=== PATIENT | male | born 1965 | race Caucasian/White ===

== ENCOUNTER 2023-04-20 18:16 | Emergency (ER) | payer BC, OTHER ==
[2023-04-20 19:03] LABS: BASOPHILS ABSOLUTE AUTO 0.01 10^3/uL (0.00-0.10); BASOPHILS PERCENT AUTO 0.1 % (0.0-1.0); HEMATOCRIT 41.2 % (40.0-52.0); IMMATURE GRAN ABSOLUTE AUTO 0.02 10^3/uL (0.00-0.50); IMMATURE GRAN PERCENT AUTO 0.2 % (0.0-5.0); LYMPHOCYTES ABSOLUTE AUTO 0.67 10^3/uL (1.00-4.00); LYMPHOCYTES PERCENT AUTO 5.6 % (20.0-40.0); MEAN CORPUSCULAR HEMOGLOBIN 30.6 pg (27.0-31.0); MEAN CORPUSCULAR VOLUME 90.2 fL (82.0-92.0); MEAN PLATELET VOLUME 10.5 fL (7.4-10.4); MONOCYTES ABSOLUTE AUTO 0.75 10^3/uL (0.10-0.80); MONOCYTES PERCENT AUTO 6.3 % (2.0-8.0); NEUTROPHILS ABSOLUTE AUTO 10.48 10^3/uL (2.50-7.00); NEUTROPHILS PERCENT AUTO 87.8 % (50.0-70.0); PLATELET COUNT,PLT 128 10^3/uL (150-400); RED BLOOD CELL COUNT 4.57 10^6/uL (4.50-6.00); RED CELL DISTRIBUTION WIDTH 12.7 % (11.5-14.5); WHITE BLOOD CELL COUNT,WBC 11.93 10^3/uL (5.00-10.00)
[2023-04-20 19:31] LABS: ANION GAP 15.4 mmol/L (5-15); CALCIUM 8.6 mg/dL (8.7-10.3); CARBON DIOXIDE,CO2 26.3 mmol/L (21.0-32.0); CREATININE 0.95 mg/dL (0.51-1.17); EST CRCL DRUG DOSING (CG) 87.51 mL/min; POTASSIUM,K 3.7 mmol/L (3.5-5.1)
[2023-04-20 19:32] LABS: C-REACTIVE PROTEIN 16.9 mg/dL (0.0-0.9)
[2023-04-20] MEDS: cefTRIAXone 2 GM Vial IVPUSH ONE (19:38)
[2023-04-20] MEDS: Sodium Chloride 0.9% 100 ML IV SCH (21:09)
[2023-04-20] MEDS: Iopamidol 755 Mg/ML 100 ML Bottle IV ONE (21:10)
[2023-04-20 21:15] VITALS: BP 131/77; PULSE 101
== END 2023-04-20 21:45 | disposition home or self-care (01) ==
LOC: KA.ED 18:16
DX: L03.115 Cellulitis of right lower limb (principal)
CPT/HCPCS: 36415; 71275; 80048; 83605; 85025; 85379; 86140; 87040; 96374; 99283-25; 99284; J0696; J3490; Q9967

== ENCOUNTER 2023-07-21 15:35 | Emergency (ER) | payer BC ==
[2023-07-21 15:50] LABS: BASOPHILS ABSOLUTE AUTO 0.02 10^3/uL (0.00-0.10); BASOPHILS PERCENT AUTO 0.2 % (0.0-1.0); EOSINOPHILS ABSOLUTE AUTO 0.29 10^3/uL (0.10-0.30); EOSINOPHILS PERCENT AUTO 3.1 % (1.0-3.0); HEMOGLOBIN 14.9 g/dL (13.0-17.0); IMMATURE GRAN ABSOLUTE AUTO 0.02 10^3/uL (0.00-0.50); IMMATURE GRAN PERCENT AUTO 0.2 % (0.0-5.0); LYMPHOCYTES ABSOLUTE AUTO 1.71 10^3/uL (1.00-4.00); LYMPHOCYTES PERCENT AUTO 18.2 % (20.0-40.0); MEAN CORPUSCULAR HEMOGLOBIN 30.3 pg (27.0-31.0); MEAN CORPUSCULAR HGB CONC 33.1 g/dL (32.0-36.0); MEAN CORPUSCULAR VOLUME 91.5 fL (82.0-92.0); MEAN PLATELET VOLUME 10.4 fL (7.4-10.4); MONOCYTES ABSOLUTE AUTO 0.65 10^3/uL (0.10-0.80); MONOCYTES PERCENT AUTO 6.9 % (2.0-8.0); NEUTROPHILS PERCENT AUTO 71.4 % (50.0-70.0); PLATELET COUNT,PLT 192 10^3/uL (150-400); RED BLOOD CELL COUNT 4.92 10^6/uL (4.50-6.00); RED CELL DISTRIBUTION WIDTH 12.5 % (11.5-14.5); WHITE BLOOD CELL COUNT,WBC 9.39 10^3/uL (5.00-10.00)
[2023-07-21] MEDS: Sodium Chloride 0.9% 1,000 ML ONE (15:59)
[2023-07-21] MEDS: Sodium Chloride 0.9% 1,000 ML IV ONE (15:59)
[2023-07-21] MEDS: Ketorolac 30 MG/ML SDV IM ONE (16:00)
[2023-07-21] MEDS: Ketorolac 30 MG/ML SDV IVPUSH ONE (16:00)
[2023-07-21] MEDS: Ketorolac 30 MG/ML SDV ONE (16:01)
[2023-07-21 16:03] LABS: ALBUMIN 4.19 g/dL (3.40-5.00); ANION GAP 12.2 mmol/L (5-15); BILIRUBIN TOTAL 0.5 mg/dL (0.2-1.0); CALCIUM 9.1 mg/dL (8.7-10.3); CREATININE 0.8 mg/dL (0.51-1.17); EST CRCL DRUG DOSING (CG) 103.92 mL/min; POTASSIUM,K 4.2 mmol/L (3.5-5.1); PROTEIN TOTAL,TP 7.7 g/dL (6.4-8.2)
[2023-07-21 16:14] VITALS: BP 115/68; PULSE 64
== END 2023-07-21 16:57 | disposition home or self-care (01) ==
LOC: KA.ED 15:35
DX: K57.30 Diverticulosis of large intestine without perforation or abscess without bleeding (principal); K56.41 Fecal impaction
CPT/HCPCS: 36415; 74176; 80053; 85025; 96372; 96374; 99284; 99284-25; J1885; J7030